=== PATIENT | female | born 1985 | race Caucasian/White ===

== ENCOUNTER 2017-06-20 07:45 | Observation (INO) | payer OTHER ==
[2017-06-20 09:34] LABS: COLOR PALE YELLOW; LEUKOCYTE ESTERASE,URINE NEGATIVE (NEGATIVE); NITRITE,URINE NEGATIVE (NEGATIVE)
[2017-06-20 09:43] LABS: BACTERIA TRACE /hpf (NONE SEEN); MUCUS TRACE /lpf (NONE-1+)
--- NOTE | 2017-06-20 10:07 | GHP ---
[f rep st] HISTORY AND PHYSICAL DATE OF ADMISSION: 06/20/2017 TRIAGE NOTE ADMITTING DIAGNOSES: Intrauterine at 27-6/7 weeks' gestation with leakage of fluid, rule o ut rupture of membranes. HISTORY OF PRESENT ILLNESS: The patient is a 31-year-old 3, para 0-0-2-0 with a last menstru al period of 12/06/2016, and an EDC of 09/13/2017 which was confirmed by an 8-week ultrasound. She p resented with an episode of leakage of clear fluid at 2:30 a.m. as she was sleeping and concern for r upture of membranes. The patient has had increased urinary frequency and urinary incontinence in thi s , increasing over the last 2 weeks, but this episode felt different to her, felt more conc erning for rupture of membranes. She denies contractions or cramping. Has had good movement. Does report some urinary frequency, episodes of incontinence, and some vaginal sensitivity, but no i ncreased vaginal discharge or pruritus, burning, or other symptoms. PHYSICAL EXAMINATION: VITAL SIGNS: Upon evaluation, the patient's vital signs are stable. PELVIC: heart tones are 130s, appropriate for gestational age. She is not aria. Sterile specu lum exam is normal external genitalia. No abnormal discharge. Wet prep and CRESCENCIO are negative. Cervi x is closed, long, and firm. AmniSure was performed which was negative. A vaginal culture as well as a urinalysis and culture are pending. ASSESSMENT AND PLAN: 31-year-old, 3, para 0-0-2-0 at 27-6/7 weeks' gestation with an episode of leakage of fluid, presumed urinary continence and perhaps urinary tract infection. On urine dip she had large blood. We are awaiting the formal urinalysis and culture. I will treat her empiricall y for a urinary tract infection. Vaginal culture is pending. I do not assume she has a vaginal infe ction, and she will be discharged home with normal precautions. /[id number]/MODL
== END 2017-06-20 10:45 | disposition home or self-care (01) ==
LOC: FLD 07:45
PROVIDERS: ADMIT Advanced Practice Midwife; ATTEND Advanced Practice Midwife
DX: O23.42 Unspecified infection of urinary tract in pregnancy, second trimester (principal); Z3A.27 27 weeks gestation of pregnancy
CPT/HCPCS: G0378 ×2

== ENCOUNTER 2017-08-20 11:24 | Observation (INO) | payer OTHER ==
[2017-08-20] MEDS ORDERED: TERBUTALINE SULFATE 1 MG/ML VIAL SC ONE (11:46)
--- NOTE | 2017-08-20 12:41 | OBPROG ---
Labor Progress Note Assessment/Plan: Assessment:cat 1 fhr denies contractions amnisure sent negative nitrazine Plan:wait for amnisure results. Fu in office this week 08/20/17 12:42 Subjective/Intrapartum Course: 08/20/17 12:42 Thought possibly rom at [id number] clear fluid. Feeling positive movement. Denies contractions - Contraction Pattern Assessment Current Contraction Pattern: Irregular - FHR Assessment Araya FHR (bpm): 140 FHR Pattern Variability: Moderate FHR Category: 1 - Physical Exam General Appearance: WD/WN, alert, no apparent distress Respiratory: chest non-tender, lungs clear, normal breath sounds Cardiac/Chest: regular rate, rhythm Abdomen: normal bowel sounds Extremities: normal range of motion, Carey's sign (negative bilaterally) DTR- Lower Extremities: Knee (R): 1+, Knee (L): 1+ (no clonus) Skin: normal color, warm/dry Neuro/Psych: no motor/sensory deficits, alert, normal mood/affect, oriented x 3 ICD10 Worksheet Patient Problems: Problems Problem Status Onset UTI (urinary tract infection) Acute
--- NOTE | 2017-08-20 12:47 | OBPROG ---
Labor Progress Note Assessment/Plan: Assessment:cat 1 fhr denies contractions amnisure sent negative nitrazine amnisure negative Plan:Dischagre to home with instructions fu this week in the office. Discussed labor precautions 08/20/17 12:42 08/20/17 12:46 Subjective/Intrapartum Course: 08/20/17 12:42 Thought possibly rom at [id number] clear fluid. Feeling positive movement. Denies contractions - Contraction Pattern Assessment Current Contraction Pattern: Irregular ICD10 Worksheet Patient Problems: Problems Problem Status Onset UTI (urinary tract infection) Acute
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
== END 2017-08-20 13:10 | disposition home or self-care (01) ==
LOC: FLD 11:24
PROVIDERS: ADMIT Advanced Practice Midwife; ATTEND Obstetrics & Gynecology
DX: Z03.79 Encounter for other suspected maternal and fetal conditions ruled out (principal); Z3A.36 36 weeks gestation of pregnancy
CPT/HCPCS: G0378

== ENCOUNTER 2017-09-14 21:59 | Inpatient (IN) | payer OTHER ==
[2017-09-14] MEDS ORDERED: OXYTOCIN 20 UNIT in LR 1,000 ML IV PRN (22:51)
[2017-09-14] MEDS ORDERED: EPSOM SALT 454 GM TP PRN (22:51)
[2017-09-14] MEDS ORDERED: MISOPROSTOL 200 MCG TAB PO PRN (22:51)
[2017-09-14] MEDS ORDERED: AMPICILLIN SODIUM 2 GM in STERILE WATER INJ 25 ML IV ONE ×2 (22:51→23:30)
[2017-09-14] MEDS ORDERED: OLIVE OIL 118 ML BTL MISC PRN (22:51)
[2017-09-14] MEDS ORDERED: LR 1,000 ML IV PRN (22:51)
[2017-09-14] MEDS ORDERED: AMMONIA AROMATIC 1 EACH AMP IH PRN (22:51)
[2017-09-14] MEDS ORDERED: TERBUTALINE SULFATE 1 MG/ML VIAL IV PRN (22:51)
[2017-09-14 23:41] LABS: PLATELET COUNT 186 10^3/uL (150-400)
[2017-09-14] MEDS: MISOPROSTOL 100 MCG TAB PO PRN (23:42)
[2017-09-15] MEDS ORDERED: LIDOCAINE 1% 300 MG/30 ML SDV ONE (00:49)
[2017-09-15] MEDS ORDERED: AMMONIA AROMATIC 1 EACH AMP IH ONE (00:50)
[2017-09-15] MEDS ORDERED: OXYTOCIN 10 UNIT/ML VIAL ONE (00:50)
[2017-09-15] MEDS ORDERED: OLIVE OIL 118 ML BTL ONE (00:50)
[2017-09-15] MEDS ORDERED: TERBUTALINE SULFATE 1 MG/ML VIAL ONE (00:50)
[2017-09-15] MEDS ORDERED: MISOPROSTOL 200 MCG TAB ONE (00:50)
[2017-09-15] MEDS ORDERED: AMPICILLIN SODIUM 1 GM in NS 50 ML IV SCH (02:52)
[2017-09-15] MEDS: AMPICILLIN SODIUM 1 GM in STERILE WATER INJ 15 ML IV SCH ×5 (03:29→20:31)
[2017-09-15] MEDS: MISOPROSTOL 100 MCG TAB PO PRN (03:36)
--- NOTE | 2017-09-15 08:00 | PDGENHP ---
History and Physical History and Physical: HPI: Patient is a 31 yo G 3 P 0020 at 40.2 weeks EGA - presents to L&D for IOL. EDC: 09/13/2017 which is based on LMP: 12/06/2016 which is known and consistent with Ultrasound at 6 weeks. Her is complicated by: -frequent PVCs-sees [facility] -h/o gerd -h/o anxiety (not treated) -GBS pos Review of Systems: Constitutional: Denies any fever, chills, or fatigue HEENT: denies any visual changes, difficulty swallowing, hearing loss Cardiovascular: Denies any chest pain, palpitations, leg swelling Respiratory: denies any cough, wheezing, or shortness of breathe GI: Denies any nausea, vomiting, diarrhea, constipation : denies any dysuria, urgency, frequency, vaginal bleeding Musculoskeletal: denies any muscle or bone pain Skin: denies any rashes Neuro: denies any headache, seizures, lightheadedness, dizziness, or loss of consciousness Psychiatric: denies any current depression, anxiety, or SI/HI thoughts HISTORY: Previous OB history: h/o SAB X1, TAB X1 after with IUD Past medical history: anxiety, h/o frequent PVCs, eczema Past surgical history: Right foot surgery Medications: PNV, DHA, magnesium, vit D Allergies : NKDA LABS: Rh: A pos ABS: Neg Rubella: Immune HbsAg: NR HIV: NR VDRL: NR 1hr: 90 GC: Neg Chlamydia: Neg Pap: Normal GBS: pos BMI: (prepreg) 24.5 PHYSICAL EXAM: Constitutional: WN, A&Ox3 HEENT: normocephalic atraumatic, supple Heart: RRR, no murmur Chest: CTA-B Abdomen: Soft, nontender, gravid SVE: 1/60/-2 Extremities: mild pedal edema, negative jeanie's sign Neuro: grossly normal Psych: normal affect assessment: Reassuring FHTs, baseline 130 +accels, no decels, moderate variability Contractions: toco irregular mild Assessment: 1) 32 yo G3 P 0020 with IUP@ 40.2 weeks EGA 2) IOL 3) GBS pos 4) Cat 1 FHR tracing Plan: 1) Admit to L&D 2) IOL 3) Had cytotec X2 overnight 4) Peña bulb placed 5) pitocin per protocol 6)AROM PRN 7) Pain management PRN pre patient request 8) Anticipate
[2017-09-15] MEDS ORDERED: LR 500 ML IV PRN (09:02)
[2017-09-15] MEDS ORDERED: OXYTOCIN 30 UNIT in NS 500 ML IV SCH (09:15)
--- NOTE | 2017-09-15 18:05 | OBPROG ---
Labor Progress Note Assessment/Plan: Assessment: 32 y/o at 40.2 wks EGA IOL - duval bulb in place/pitocin 8mu GBS pos Cat 1 EFM Cntx mild q2-4 Plan: Continue pitocin induction Continue GBS prophylaxis Reassess PRN Consider removing duval at 2100 and AROM if appropriate Pain management PRN 09/15/17 17:57 Subjective/Intrapartum Course: 09/15/17 18:23 Patient doing well. Appears comfortable with contractions. FOB/mom at bedside and supportive. Objective: 09/14/17 23:00 Patient ABO/Rh A POSITIVE 09/14/17 23:00 No SVE - duval bulb still in place - SVE Membranes: Intact - Contraction Pattern Assessment Current Contraction Pattern: Irregular - FHR Assessment Araya FHR (bpm): 145 FHR Pattern Variability: Moderate FHR Category: 1 - Physical Exam General Appearance: WD/WN (Patient ambulating in halls, appears comfortable), alert Oxytocin Orders Assessment - Pre-Induction/Augmentation Assessment Gestational Age: 40 week(s) and 1 day(s) ICD10 Worksheet Patient Problems: Problems Problem Status Onset Supervision of other normal Acute - ICD10 Problem Qualifiers (1) Supervision of other normal
[2017-09-15] MEDS ORDERED: PHENYLEPHRINE HCL 100 MCG/ML SYR ONE (23:07)
[2017-09-15] MEDS ORDERED: fentanYL 4MCG/ML/BUP 0.0625% RTU 250 ML BAG EP ONE (23:07)
[2017-09-15] MEDS ORDERED: fentaNYL 4MCG/ML/BUP 0.0625% R 250 ML EP SCH (23:45)
[2017-09-15] MEDS ORDERED: LR 500 ML IV SCH (23:45)
[2017-09-15] MEDS ORDERED: PHENYLEPHRINE HCL 100 MCG/ML SYR IVP PRN (23:47)
[2017-09-15] MEDS ORDERED: ONDANSETRON 4 MG/2 ML VIAL IVP PRN (23:47)
--- NOTE | 2017-09-15 23:49 | PREANESOB ---
Obstetric Pre-Anesthesia Info - General Info Proposed Procedure: Labor Epidural : 3 Para: 0 AMITA: 09/13/17 Gestational Age: 40 week(s) and 1 day(s) - Labor Status Indications for Labor Analgesia: Pain Control Labor Epidural: Yes Anesthesia Allergies/Adverse Reactions: Allergy/AdvReac Type Severity Reaction Status Date / Time No Known Allergies Allergy Verified 06/20/17 09:53 Home Medications: Medication Instructions Recorded Control Pill 01/03/12 Metoprolol Tartrate 04/17/16 04/17/16 Visit Medications: Generic Name Dose Route Start Last Admin Trade Name Freq PRN Reason Stop Dose Admin Ammonia (Aromatic Spirit) 1 each 09/14/17 22:51 Ammonia Aromatic IH 09/24/17 22:50 ONCE PRN Fainting Oxytocin 20 unit/ Lactated 1,002 mls @ 150 mls/hr 09/14/17 22:51 Ringer's IV PRN PRN Post- bleeding Ampicillin Sodium 1 gm/ 15 mls @ 60 mls/hr 09/15/17 03:30 09/15/17 20:31 Sterile Water IV 10/15/17 03:29 15 mls Q4H ROSE Administration Lactated Ringer's 500 mls @ 500 mls/hr 09/15/17 09:02 Lr IV 09/16/17 09:02 PRN PRN Maternal Hypotension Oxytocin 30 unit/ Sodium 503 mls @ 0 mls/hr 09/15/17 09:15 09/15/17 14:43 Chloride IV 03/14/18 09:14 503 mls CONT ROSE Administration Protocol Per Protocol Ibuprofen 600 mg 09/14/17 22:51 Motrin PO 03/13/18 22:50 Q6HRS PRN post , inflammation Magnesium Sulfate 454 gm 09/14/17 22:51 Epsom Salt TP 03/13/18 22:50 Q1H PRN perineal discomfort Misoprostol 800 - 1,000 mcg 09/14/17 22:51 Cytotec PO ONCE PRN Vaginal Atony/Bleeding Misoprostol 50 mcg 09/14/17 22:54 09/15/17 03:36 Cytotec PO 03/13/18 22:53 50 mcg Q4 PRN Administration labor [place] Oil 118 ml 09/14/17 22:51 Sweet Oil MISC 03/13/18 22:50 ONCE PRN perineal massage Terbutaline Sulfate 0.25 mg 09/14/17 22:51 Brethine IV 03/13/18 22:50 ONCE PRN Tachysystole Discontinued Medications Generic Name Dose Route Start Last Admin Trade Name Taz PRN Reason Stop Dose Admin Ammonia (Aromatic Spirit) Confirm 09/15/17 00:50 Ammonia Aromatic Administered 09/15/17 00:51 Dose 1 each IH .STK-MED ONE Fentanyl/Bupivacaine HCl Confirm 09/15/17 23:07 Fentanyl/Bupivacaine/Ns 4 Mcg/Ml 0.0625%(Rtu) Administered 09/15/17 23:08 Dose 250 ml EP .STK-MED ONE Lactated Ringer's 1,000 mls @ 0 mls/hr 09/14/17 22:51 Lr IV 09/15/17 22:50 PRN PRN SEE PROTOCOL CONDITIONS Protocol Per Protocol Ampicillin Sodium 2 gm/ 25 mls @ 100 mls/hr 09/14/17 23:30 09/15/17 00:16 Sterile Water IV 09/14/17 23:44 25 mls ONCE ONE Administration Lidocaine HCl Confirm 09/15/17 00:49 Lidocaine Hcl 1% Administered 09/15/17 00:50 Dose 300 mg .ROUTE .STK-MED ONE Misoprostol Confirm 09/15/17 00:50 Cytotec Administered 09/15/17 00:51 Dose 1,000 mcg .ROUTE .STK-MED ONE [place] Oil Confirm 09/15/17 00:50 Sweet Oil Administered 09/15/17 00:51 Dose 118 ml .ROUTE .STK-MED ONE Oxytocin Confirm 09/15/17 00:50 Pitocin Administered 09/15/17 00:51 Dose 40 unit .ROUTE .STK-MED ONE Phenylephrine HCl Confirm 09/15/17 23:07 Neosynephrine Administered 09/15/17 23:08 Dose 1,000 mcg .ROUTE .STK-MED ONE Terbutaline Sulfate Confirm 09/15/17 00:50 Brethine Administered 09/15/17 00:51 Dose 1 mg .ROUTE .STK-MED ONE - Vital Signs Height/Weight (Nursing): Height 167.64 cm Weight 85.729 kg - Focused Exam Neck exam: FROM Mallampati Score: Class 2 Mouth exam: normal dental/mouth exam Pulmonary: clear to auscultation Cardiovascular: regular rate and rhythym Labs: 09/14/17 23:00 Patient ABO/Rh A POSITIVE 09/14/17 23:00 - Plan Consent Signed and on Chart: Yes Patient/Guardian Understands and Agrees to Plan: Yes
[2017-09-16] MEDS: AMPICILLIN SODIUM 1 GM in STERILE WATER INJ 15 ML IV SCH ×5 (00:31→20:10)
--- NOTE | 2017-09-16 05:51 | OBPROG ---
Labor Progress Note Assessment/Plan: LATE ENTRY (@2044) Assessment: [id number] IOL- pitocin @ 18 GBS+ cat 1 FHR tracing AROM- clear Plan: cont pitocin pain management PRN reassess 2hr/PRN 09/16/17 05:53 09/16/17 05:57 Subjective/Intrapartum Course: 09/15/17 18:23 Patient doing well. Appears comfortable with contractions. FOB/mom at bedside and supportive. 09/16/17 05:48 (late entry for 2044) Pt doing well, reports mild pain with contractions. She is breathing through some contractions. She denies any LOF, VB. She has FOB/mother at supportive. She is ambulating and using birthing ball for pain relief at this time. Objective: 09/14/17 23:00 Patient ABO/Rh A POSITIVE 09/14/17 23:00 - SVE Dilation (cm): 4 Effacement (%): 50 Station: -2 Membranes: Intact - Contraction Pattern Assessment Current Contraction Pattern: Irregular - FHR Assessment Araya FHR (bpm): 145 FHR Pattern Variability: Moderate FHR Category: 1 - Procedures Non-surgical Procedures: Amniotomy CNM Assessment - Uterine Assessment Contraction Strength: Moderate Uterine Resting Tone: Palpates Soft Between Uterine Contractions Oxytocin Orders Assessment - Pre-Induction/Augmentation Assessment Presentation: Vertex Gestational Age: 40 week(s) and 1 day(s) Current Contraction Pattern: Irregular - Heart Rate Pattern Araya FHR Baseline (bpm): 145 FHR Category: 1 FHR Pattern Variability: Moderate FHR Accelerations: Present - Maya's Score Dilation: 3-4cm Effacement: 40-50 Station: -2 Cervix: Soft Cervix Position: Mid Maya Score Total: 7 - Induction/Augmentation Consent Risks/Benefits of Procedure Reviewed/Pt Agrees to Proceed: Yes ICD10 Worksheet Patient Problems: Problems Problem Status Onset Supervision of other normal Acute
--- NOTE | 2017-09-16 06:01 | OBPROG ---
Labor Progress Note Assessment/Plan: LATE ENTRY (@29) Assessment: [id number] IOL- pitocin @ 18 GBS+ cat 1 FHR tracing IUPC placed Plan: pitocin decreased to 12, will increase PRN will reassess 2-4 hrs/PRN 09/16/17 06:05 Subjective/Intrapartum Course: 09/15/17 18:23 Patient doing well. Appears comfortable with contractions. FOB/mom at bedside and supportive. 09/16/17 05:48 (late entry for 2044) Pt doing well, reports mild pain with contractions. She is breathing through some contractions. She denies any LOF, VB. She has FOB/mother at BS supportive. She is ambulating and using birthing ball for pain relief at this time. 09/16/17 06:01 (late entry for 29) Pt comfortable with OXANA. Denies any pain or pressure. She is exhausted, desires to rest at this time. FOB @ BS and supportive. Objective: 09/14/17 23:00 Patient ABO/Rh A POSITIVE 09/14/17 23:00 - SVE Dilation (cm): 4 Effacement (%): 50 Station: -2 Membranes: AROM Amniotic Fluid Color: Clear - Contraction Pattern Assessment Current Contraction Pattern: Irregular - FHR Assessment Araya FHR (bpm): 150 (decelerations likely 2/2 to post OXANA. resolved with position changes.) FHR Pattern Variability: Moderate FHR Category: 2 - Procedures Non-surgical Procedures: Amniotomy Oxytocin Orders Assessment - Pre-Induction/Augmentation Assessment Presentation: Vertex Gestational Age: 40 week(s) and 1 day(s) ICD10 Worksheet Patient Problems: Problems Problem Status Onset Supervision of other normal Acute
--- NOTE | 2017-09-16 06:19 | OBPROG ---
Labor Progress Note Assessment/Plan: Assessment: [id number] IOL- pitocin @ 18 GBS+ cat 2 FHR tracing dysfunctional labor pattern Plan: reposition pt cont pitocin reassess 2-4hr/PRN report given to Davis Vazquez MD 09/16/17 06:05 09/16/17 06:15 09/16/17 06:20 Subjective/Intrapartum Course: 09/15/17 18:23 Patient doing well. Appears comfortable with contractions. FOB/mom at bedside and supportive. 09/15/17 (late entry for 2044) Pt doing well, reports mild pain with contractions. She is breathing through some contractions. She denies any LOF, VB. She has FOB/mother at BS supportive. She is ambulating and using birthing ball for pain relief at this time. 09/16/17 (late entry for 29) Pt comfortable with OXANA. Denies any pain or pressure. She is exhausted, desires to rest at this time. FOB @ BS and supportive. 09/16/17 06:16 Pt comfortable, was able to rest a couple hours. She denies any pain. Objective: 09/14/17 23:00 Patient ABO/Rh A POSITIVE 09/14/17 23:00 - SVE Dilation (cm): 4 Effacement (%): 75 Station: -2 Membranes: AROM Amniotic Fluid Color: Clear - Contraction Pattern Assessment Current Contraction Pattern: Irregular - FHR Assessment Araya FHR (bpm): 145 FHR Pattern Variability: Moderate FHR Category: 2 (MVUs adequate intermittently, but appears to be in dysfunctional labor pattern) - Procedures Non-surgical Procedures: IUPC Oxytocin Orders Assessment - Pre-Induction/Augmentation Assessment Presentation: Vertex Gestational Age: 40 week(s) and 1 day(s) ICD10 Worksheet Patient Problems: Problems Problem Status Onset Supervision of other normal Acute
--- NOTE | 2017-09-16 07:50 | OBPROG ---
Labor Progress Note Assessment/Plan: Assessment: IUP at 40 + wks long induction currently early labor at 4/75/-2 on last exam at 5:30 GBS + Plan: cont pitocin, cont abx, adeq ctxns by IUPC 09/16/17 07:47 Subjective/Intrapartum Course: 09/15/17 18:23 Patient doing well. Appears comfortable with contractions. FOB/mom at bedside and supportive. 09/15/17 (late entry for 2044) Pt doing well, reports mild pain with contractions. She is breathing through some contractions. She denies any LOF, VB. She has FOB/mother at BS supportive. She is ambulating and using birthing ball for pain relief at this time. 09/16/17 (late entry for 29) Pt comfortable with OXANA. Denies any pain or pressure. She is exhausted, desires to rest at this time. FOB @ BS and supportive. 09/16/17 06:16 Pt comfortable, was able to rest a couple hours. She denies any pain. 09/16/17 07:50 Pt doing ok, good mental attitude, slight left side discomfort. having jello and juice. discuss good FHTs and good ctns by IUPC Objective: 09/14/17 23:00 Patient ABO/Rh A POSITIVE 09/14/17 23:00 - SVE Membranes: AROM Amniotic Fluid Color: Clear - Contraction Pattern Assessment Current Contraction Pattern: Irregular - FHR Assessment Araya FHR (bpm): 140 FHR Pattern Variability: Moderate FHR Category: 1 - Procedures Non-surgical Procedures: IUPC Oxytocin Orders Assessment - Pre-Induction/Augmentation Assessment Presentation: Vertex Gestational Age: 40 week(s) and 1 day(s) ICD10 Worksheet Patient Problems: Problems Problem Status Onset Supervision of other normal Acute
--- NOTE | 2017-09-16 09:18 | OBPROG ---
Labor Progress Note Assessment/Plan: Assessment: IUP at 40 + wks long induction currently at /-2, cont effacement but no dilation yet GBS + Plan: cont pitocin, cont abx, adeq ctxns by IU - will recheck in 3-4 hrs 09/16/17 07:47 09/16/17 09:15 Subjective/Intrapartum Course: 09/15/17 18:23 Patient doing well. Appears comfortable with contractions. FOB/mom at bedside and supportive. 09/15/17 (late entry for 2044) Pt doing well, reports mild pain with contractions. She is breathing through some contractions. She denies any LOF, VB. She has FOB/mother at BS supportive. She is ambulating and using birthing ball for pain relief at this time. 09/16/17 (late entry for 29) Pt comfortable with OXANA. Denies any pain or pressure. She is exhausted, desires to rest at this time. FOB @ BS and supportive. 09/16/17 06:16 Pt comfortable, was able to rest a couple hours. She denies any pain. 09/16/17 07:50 Pt doing ok, good mental attitude, slight left side discomfort. having jello and juice. discuss good FHTs and good ctns by IUPC 09/16/17 09:17 pt doing ok - comfortable, disc effacement and hope for cervical change on next exam Objective: 09/14/17 23:00 Patient ABO/Rh A POSITIVE 09/14/17 23:00 - SVE Dilation (cm): 4 Effacement (%): 90 Station: -2 Membranes: AROM Amniotic Fluid Color: Clear - Contraction Pattern Assessment Current Contraction Pattern: Irregular - FHR Assessment Araya FHR (bpm): 140 FHR Pattern Variability: Moderate FHR Category: 1 - Procedures Non-surgical Procedures: IUPC Oxytocin Orders Assessment - Pre-Induction/Augmentation Assessment Presentation: Vertex Gestational Age: 40 week(s) and 1 day(s) ICD10 Worksheet Patient Problems: Problems Problem Status Onset Supervision of other normal Acute
[2017-09-16] MEDS ORDERED: ACETAMINOPHEN 500 MG TAB PO ONE (14:14)
[2017-09-16] MEDS ORDERED: ceFAZolin 2 GM/DEXTROSE 100 ML IV ONE (14:16)
[2017-09-16] MEDS ORDERED: ceFAZolin 2 GM/SWFI 2 GM/20 ML SYR IVP ONE (14:30)
[2017-09-16] MEDS ORDERED: fentaNYL 100 MCG/2 ML INJ ONE ×2 (14:48→14:51)
[2017-09-16] MEDS ORDERED: LIDO/EPI 2% **for epidural** 20 ML SDV ONE (14:49)
--- NOTE | 2017-09-16 14:57 | OBPROG ---
Labor Progress Note Assessment/Plan: Assessment:LATE NOTE - PT WAS REASSESSED AT 12:45 IUP at 40 + wks long induction arrest of dilation - still /-2 GBS + low grade temp - will give tylenol Plan: proceed with c/s for delivery, pt advised of risks and benefits and consent signed 09/16/17 07:47 09/16/17 09:15 09/16/17 14:53 Subjective/Intrapartum Course: 09/15/17 18:23 Patient doing well. Appears comfortable with contractions. FOB/mom at bedside and supportive. 09/15/17 (late entry for 2044) Pt doing well, reports mild pain with contractions. She is breathing through some contractions. She denies any LOF, VB. She has FOB/mother at BS supportive. She is ambulating and using birthing ball for pain relief at this time. 09/16/17 (late entry for 29) Pt comfortable with OXANA. Denies any pain or pressure. She is exhausted, desires to rest at this time. FOB @ BS and supportive. 09/16/17 06:16 Pt comfortable, was able to rest a couple hours. She denies any pain. 09/16/17 07:50 Pt doing ok, good mental attitude, slight left side discomfort. having jello and juice. discuss good FHTs and good ctns by IUPC 09/16/17 09:17 pt doing ok - comfortable, disc effacement and hope for cervical change on next exam 09/16/17 14:56 Pt remaining comfortable. advised of lack of cervical change and still / possibly -1 but maybe just longer caput. Rec c/s and pt understands and is ready. disc risks and benefits and consent signed Objective: 09/14/17 23:00 Patient ABO/Rh A POSITIVE 09/14/17 23:00 - SVE Dilation (cm): 4 Effacement (%): 90 Station: -1 Membranes: AROM Amniotic Fluid Color: Clear - Contraction Pattern Assessment Current Contraction Pattern: Regular (on pit 20 mu/min with MVUs 140-160), Irregular - FHR Assessment Araya FHR (bpm): 140 FHR Pattern Variability: Moderate FHR Category: 1 - Procedures Non-surgical Procedures: IUPC Oxytocin Orders Assessment - Pre-Induction/Augmentation Assessment Presentation: Vertex Gestational Age: 40 week(s) and 1 day(s) ICD10 Worksheet Patient Problems: Problems Problem Status Onset Supervision of other normal Acute
[2017-09-16] MEDS ORDERED: OXYTOCIN 100 UNITS/10 ML VIAL ONE (15:17)
[2017-09-16] MEDS ORDERED: morphINE PF 5 MG/10 ML INJ ONE (15:17)
[2017-09-16] MEDS ORDERED: DEXAMETHASONE 4 MG/ML VIAL ONE ×2 (15:17→15:18)
[2017-09-16] MEDS ORDERED: ONDANSETRON 4 MG/2 ML VIAL ONE ×2 (15:18)
[2017-09-16] MEDS ORDERED: METOCLOPRAMIDE 10 MG/2 ML VIAL ONE ×2 (16:05→16:06)
[2017-09-16] MEDS ORDERED: POLYETHYLENE GLYCOL 3350 17 GM PKT PO PRN (16:33)
[2017-09-16] MEDS ORDERED: MAGNESIUM HYDROXIDE 30 ML UDCUP PO PRN (16:33)
[2017-09-16] MEDS ORDERED: LACTULOSE 20 GM/30 ML UDCUP PO PRN (16:33)
[2017-09-16] MEDS ORDERED: BISACODYL 10 MG SUPP PR PRN (16:33)
--- NOTE | 2017-09-16 16:37 | OBDEL ---
Info Type: Primary Presentation at Delivery: Vertex L&D Analgesia/Anesthesia Type: Epidural GBS+: Yes (mult doses of Amp) Antibiotic Used for + GBS: Ampicillin Intrapartum Medications: Generic Name Dose Route Start Last Admin Trade Name Freq PRN Reason Stop Dose Admin Ampicillin Sodium 1 gm/ 15 mls @ 60 mls/hr 09/15/17 03:30 09/16/17 12:13 Sterile Water IV 10/15/17 03:29 15 mls Q4H ROSE Administration Oxytocin 30 unit/ Sodium 503 mls @ 0 mls/hr 09/15/17 09:15 09/15/17 14:43 Chloride IV 03/14/18 09:14 503 mls CONT ROSE Administration Protocol Per Protocol Misoprostol 50 mcg 09/14/17 22:54 09/15/17 03:36 Cytotec PO 03/13/18 22:53 50 mcg Q4 PRN Administration labor Discontinued Medications Generic Name Dose Route Start Last Admin Trade Name Freq PRN Reason Stop Dose Admin Acetaminophen 1,000 mg 09/16/17 14:14 09/16/17 14:16 Tylenol PO 09/16/17 14:15 1,000 mg ONCE ONE Administration Ampicillin Sodium 2 gm/ 25 mls @ 100 mls/hr 09/14/17 23:30 09/15/17 00:16 Sterile Water IV 09/14/17 23:44 25 mls ONCE ONE Administration Cefazolin Sodium/Dextrose 100 mls @ 200 mls/hr 09/16/17 14:16 09/16/17 14:55 Ancef 2 Gm (Premix) IV 09/16/17 14:45 Not Given ONCALL ONE Protocol Cefazolin Sodium 2 gm in 20 mls @ 200 mls/hr 09/16/17 14:30 09/16/17 14:55 Cefazolin Syringe IVP 09/16/17 14:35 20 mls ONCALL ONE Administration - Infant Care Provider Transplant Case Manager/INSPECTION MACHINE TENDER: Aleida Perrin - Hospital Course Intrapartum: 09/15/17 18:23 Patient doing well. Appears comfortable with contractions. FOB/mom at bedside and supportive. 09/15/17 (late entry for 2044) Pt doing well, reports mild pain with contractions. She is breathing through some contractions. She denies any LOF, VB. She has FOB/mother at BS supportive. She is ambulating and using birthing ball for pain relief at this time. 09/16/17 (late entry for 0030) Pt comfortable with OXANA. Denies any pain or pressure. She is exhausted, desires to rest at this time. FOB @ and supportive. 09/16/17 06:16 Pt comfortable, was able to rest a couple hours. She denies any pain. 09/16/17 07:50 Pt doing ok, good mental attitude, slight left side discomfort. having jello and juice. discuss good FHTs and good ctns by [facility] 09/16/17 09:17 pt doing ok - comfortable, disc effacement and hope for cervical change on next exam 09/16/17 14:56 Pt remaining comfortable. advised of lack of cervical change and still / possibly -1 but maybe just longer caput. Rec c/s and pt understands and is ready. disc risks and benefits and consent signed Indications for Delivery: Elective, Postterm Unfavorable Cervix Vaginal Delivery - Labor and Delivery Amniotic Fluid Color: Clear Non-surgical Procedures: [facility] Operative Report - Delivery Pre-op Diagnoses: IUP at 40+ wks, arrest of dilation Post-op Diagnoses: same, delivered, persistent OP History of Prior Section: No Nulliparous Prior to Delivery: No Indications for Current Section: Arrest of Dilation Procedure: Unscheduled, Low Transverse Surgeon: Lorna Vazquez Grievance And Appeals Specialist: Makeda Mosher Anesthesiologist: Julio Mae Findings: nl ut, ov, tubes. small extension on right lateral hysterotomy - o/w hysterotomy closed in nl fashion with double closure. Baby in persistent OP position with marked caput in post acynclitic position. long cord - clear fluid. clear UOP EBL: [address] [place] Data AMITA: 09/13/17 Gestational Age: 40 week(s) and 3 day(s) Araya Delivery Date: 09/16/17 Delivery Time: 15:32 Sex of : Male Score (1 Min): 8 Score (5 Min): 9 ICD10 Worksheet Patient Problems: Problems Problem Status Onset delivery delivered Acute Supervision of other normal Acute - ICD10 Problem Qualifiers (1) delivery delivered
[2017-09-16] MEDS ORDERED: KETOROLAC 30 MG/1 ML SDV ONE (17:03)
[2017-09-16] MEDS: KETOROLAC 30 MG/1 ML SDV IVP SCH ×2 (17:06→23:28)
--- NOTE | 2017-09-16 17:08 | POSTANESTH ---
Post Anesthetic Evaluation Cardiovascular Status: Normal, Stable, Similar to Pre-Op Cond Respiratory Status: Normal, Stable, Similar to Pre-op Cond. Level of Consciousness/Mental Status: Can Participate in Eval, Alert and Oriented Pain Control: Adequate, Prn Tx Ordered Nausea/Vomiting Control: Adequate, Prn Tx Ordered Complications Possibly Related to Anesthesia: None Noted
[2017-09-16] MEDS ORDERED: ONDANSETRON 4 MG/2 ML VIAL IVP PRN (17:10)
[2017-09-16] MEDS ORDERED: fentaNYL 100 MCG/2 ML INJ IVP PRN (17:10)
[2017-09-16] MEDS ORDERED: NALOXONE HCL 0.4 MG/ML INJ IVP PRN (17:10)
[2017-09-16] MEDS ORDERED: MEPERIDINE 25 MG/ML SYR IVP PRN (17:10)
[2017-09-16] MEDS ORDERED: PHENYLEPHRINE HCL 100 MCG/ML SYR IVP PRN (17:10)
--- NOTE | 2017-09-16 17:15 | PDMN ---
Medical Necessity Medical necessity: C/M review: Patient meets INPT criteria under MCG S-350 delivery: viable male .
[2017-09-17] MEDS: SENNOSIDES/DOCUSATE SODIUM TAB PO SCH ×4 (00:38→21:33)
[2017-09-17] MEDS: KETOROLAC 30 MG/1 ML SDV IVP SCH ×2 (06:17→12:10)
[2017-09-17] MEDS: HYDROCODONE/APAP 5/325 TAB PO PRN ×4 (07:49→20:49)
--- NOTE | 2017-09-17 10:56 | OBPP ---
Progress Note Assessment/Plan: Assessment: [id number] s/p primary c/s POD#1 anemia Plan: routine Post op care ambulate void once duval d/c'd start PO iron cont - work with PRN plan d/c home 48-72 hours 09/16/17 06:05 09/16/17 06:15 09/16/17 06:20 09/17/17 10:52 Subjective/ Course: 09/17/17 10:53 Pt doing well, she is . She has been OOB in chair, plans to get OOB again soon. She has duval draining via gravity, plans to be removed soon. She is happy with delivery. She expresses understanding of need for c/s. Bonding well with baby. She denies any depression/sadness. FOB @ BS, supportive. Objective: 09/17/17 03:20 Patient ABO/Rh A POSITIVE 09/14/17 23:00 Temp Pulse Resp BP Pulse Ox 36.6 C 81 14 106/76 96 09/17/17 07:33 09/17/17 07:33 09/17/17 07:33 09/17/17 07:33 09/17/17 08:00 Uterine Position/Fundal Height: Umbilicus -1, Midline Uterine Tone: Firm Physical Exam - Physical Exam Abdomen: dressing (C/D/I)
[2017-09-17] MEDS: IBUPROFEN 600 MG TAB PO PRN (17:54)
[2017-09-18] MEDS: IBUPROFEN 600 MG TAB PO PRN ×4 (00:06→18:47)
[2017-09-18] MEDS: HYDROCODONE/APAP 5/325 TAB PO PRN ×6 (00:54→21:23)
[2017-09-18] MEDS: SENNOSIDES/DOCUSATE SODIUM TAB PO SCH ×2 (08:52→21:24)
--- NOTE | 2017-09-18 11:55 | OBPP ---
Progress Note Assessment/Plan: Assessment: POD 2 s/p primary section for arrest of dilation mild anemia Plan: routine care. iron daily 09/16/17 07:47 09/16/17 09:15 09/16/17 14:53 09/18/17 11:52 Subjective/ Course: 09/17/17 10:53 Pt doing well, she is . She has been OOB in chair, plans to get OOB again soon. She has duval draining via gravity, plans to be removed soon. She is happy with delivery. She expresses understanding of need for c/s. Bonding well with baby. She denies any depression/sadness. FOB @ BS, supportive. 09/18/17 11:53 Pt doing ok - tired - was up most of night with baby. working on BF. sore nipples. pain is controlled with [place] and ibu. urinating fine. bld is light. amb ok. Objective: 09/17/17 03:20 Patient ABO/Rh A POSITIVE 09/14/17 23:00 Temp Pulse Resp BP Pulse Ox 36.2 C 81 14 105/71 96 09/18/17 08:00 09/18/17 08:00 09/18/17 08:00 09/18/17 08:00 09/18/17 08:00 Uterine Position/Fundal Height: Umbilicus -1 Uterine Tone: Firm Physical Exam - Physical Exam Abdomen: non-tender (approp post op tenderness), soft, other (FF at umb -1, incision CDI) Extremities: non-tender, pedal edema (mild) Skin: normal color, warm/dry Neuro/Psych: alert, normal mood/affect
[2017-09-18 23:08] VITALS: RESP 16
[2017-09-19] MEDS: IBUPROFEN 600 MG TAB PO PRN ×3 (00:55→12:44)
[2017-09-19] MEDS: HYDROCODONE/APAP 5/325 TAB PO PRN ×4 (00:56→15:05)
[2017-09-19] MEDS ORDERED: IRON POLYSAC/IRON HEME 28 MG TAB PO SCH (09:00)
[2017-09-19 09:23] VITALS: BP 129/74; PULSE 88; TEMP 98.4; O2SAT 96
--- NOTE | 2017-09-19 09:46 | OBPP ---
Progress Note Assessment/Plan: Assessment:32 [id number] POD#3 s/P primary LTCS secondary to arrest of dilation Plan: Discharge home today - see dc summary. 09/19/17 09:42 Subjective/ Course: Uncomplicated course, challenging - going home with SNS. 09/17/17 10:53 Pt doing well, she is . She has been OOB in chair, plans to get OOB again soon. She has duval draining via gravity, plans to be removed soon. She is happy with delivery. She expresses understanding of need for c/s. Bonding well with baby. She denies any depression/sadness. FOB @ BS, supportive. 09/18/17 11:53 Pt doing ok - tired - was up most of night with baby. working on BF. sore nipples. pain is controlled with [place] and ibu. urinating fine. bld is light. amb ok. 09/19/17 09:43 Doing well. is challenging - will try SNS today but peds is planning dc home for baby today too. Ambulating, voiding, tolerating regular diet, + flatus. Objective: 09/17/17 03:20 Patient ABO/Rh A POSITIVE 09/14/17 23:00 Temp Pulse Resp BP Pulse Ox 36.9 C 88 16 129/74 H 96 09/19/17 08:00 09/19/17 08:00 09/19/17 08:00 09/19/17 08:00 09/19/17 08:00 gen - pleasant, in NAD CV - RRR chest - CTAB abd - soft, fundus firm at umbilicus, + NABS, incision - c/d/i with steristrips ext - 2+ edema, Carey's neg Uterine Position/Fundal Height: At Umbilicus Uterine Tone: Firm Physical Exam - Physical Exam General Appearance: WD/WN, alert Respiratory: lungs clear, normal breath sounds Cardiac/Chest: regular rate, rhythm Abdomen: normal bowel sounds, other Extremities: pedal edema (2+ bilateral LE), Carey's sign (neg) Skin: normal color
--- NOTE | 2017-09-19 09:53 | OBGCSDC ---
General Delivery Information - General Info : 3 Para: 1 Abortions: 2 Type: Primary L&D Analgesia/Anesthesia Type: Epidural Admission Date: 09/14/17 Labs: Patient ABO/Rh A POSITIVE 09/14/17 23:00 Hct 34.0 % (38.0-47.0) L 09/17/17 03:20 - Hospital Course Intrapartum: 09/15/17 18:23 Patient doing well. Appears comfortable with contractions. FOB/mom at bedside and supportive. 09/15/17 (late entry for 2044) Pt doing well, reports mild pain with contractions. She is breathing through some contractions. She denies any LOF, VB. She has FOB/mother at BS supportive. She is ambulating and using birthing ball for pain relief at this time. 09/16/17 (late entry for 29) Pt comfortable with OXANA. Denies any pain or pressure. She is exhausted, desires to rest at this time. FOB @ BS and supportive. 09/16/17 06:16 Pt comfortable, was able to rest a couple hours. She denies any pain. 09/16/17 07:50 Pt doing ok, good mental attitude, slight left side discomfort. having jello and juice. discuss good FHTs and good ctns by [facility] 09/16/17 09:17 pt doing ok - comfortable, disc effacement and hope for cervical change on next exam 09/16/17 14:56 Pt remaining comfortable. advised of lack of cervical change and still 4/90/ possibly -1 but maybe just longer caput. Rec c/s and pt understands and is ready. disc risks and benefits and consent signed : Uncomplicated course, challenging - going home with SNS. 09/17/17 10:53 Pt doing well, she is . She has been OOB in chair, plans to get OOB again soon. She has duval draining via gravity, plans to be removed soon. She is happy with delivery. She expresses understanding of need for c/s. Bonding well with baby. She denies any depression/sadness. FOB @ BS, supportive. 09/18/17 11:53 Pt doing ok - tired - was up most of night with baby. working on BF. sore nipples. pain is controlled with [place] and ibu. urinating fine. bld is light. amb ok. 09/19/17 09:43 Doing well. is challenging - will try SNS today but peds is planning dc home for baby today too. Ambulating, voiding, tolerating regular diet, + flatus. Vaginal - Diagnosis Amniotic Fluid Color: Clear - Procedures Non-surgical Procedures: [facility] - Delivery Providers Surgeon: Lorna Vazquez Importer Exporter: Makeda Mosher Anesthesiologist: Julio Mae - Delivery Number of Prior Sections: 0 Indications for Current Section: Arrest of Dilation Non-surgical Procedures: [facility] Surgical Procedures: Unscheduled, Low Transverse EBL: 1000 Data AMITA: 09/13/17 Gestational Age: 40 week(s) and 6 day(s) Araya Delivery Date: 09/16/17 Delivery Time: 15:32 Sex of : Male Weight (gm): 3542 kg Score (1 Min): 8 Score (5 Min): 9
[2017-09-19] MEDS: SENNOSIDES/DOCUSATE SODIUM TAB PO SCH (10:26)
== END 2017-09-19 15:45 | disposition home or self-care (01) | DRG 766 ==
LOC: FLD 21:59 → FOB 09-16 19:00
PROVIDERS: ADMIT Obstetrics & Gynecology; ATTEND Hospitalist
PROC: 3E033VJ Introduction of Other Hormone into Peripheral Vein, Percutaneous Approach (ICD-10-PCS; 2017-09-15)
PROC: 3E03329 Introduction of Other Anti-infective into Peripheral Vein, Percutaneous Approach (ICD-10-PCS; 2017-09-15)
PROC: 10D00Z1 Extraction of Products of Conception, Low, Open Approach (ICD-10-PCS; principal; 2017-09-16)
PROC: 10907ZC Drainage of Amniotic Fluid, Therapeutic from Products of Conception, Via Natural or Artificial Opening (ICD-10-PCS; 2017-09-16)
DX: O48.0 Post-term pregnancy (principal); O62.0 Primary inadequate contractions; O99.820 Streptococcus B carrier state complicating pregnancy; O99.03 Anemia complicating the puerperium; D64.9 Anemia, unspecified; Z3A.40 40 weeks gestation of pregnancy; Z37.0 Single live birth
CPT/HCPCS: J0290; J0690; J1100; J1885; J2274; J2370; J2405; J2590; J2765; J3010; J3105

== ENCOUNTER → 2017-10-13 | Outpatient (CLI) | payer OTHER | LOC: FLACT 09:57 | PROVIDERS: ATTEND Obstetrics & Gynecology | DX: O92.5 Suppressed lactation (principal) | CPT/HCPCS: G0463 ==